=== PATIENT | female | born 1945 | race Caucasian/White ===

== ENCOUNTER → 2017-10-16 | Outpatient (CLI) | payer MEDICARE, BC ==
[~2017-10-16] MED LIST: DULE200A INH; DULO60 PO; LEVO150T7 PO; WAL-10TA2 PO
--- NOTE | 2017-10-16 13:15 | RADRPT ---
EXAM DATE: 10/16/2017 1:06 PM EDT AGE/SEX: 71 years / Female INDICATIONS: Intermittent wheezing. CLINICAL DATA: This is the patient's initial encounter. Patient reports that signs and symptoms have been present for 1 month and indicates a pain score of 0/10. MEDICAL/SURGICAL HISTORY: Asthma. None. COMPARISON: No prior exams available for comparison. FINDINGS: Underinflated AP view of the chest demonstrates a normal size cardiac silhouette. There is mild atele ctasis at the lung bases. No pleural effusion, airspace consolidation, or pneumothorax is identified. Bones and soft tissues demonstrate no acute finding. There are degenerative changes of the thoracic spine. CONCLUSION: Underinflated examination without an acute finding identified given the technique. Electronically signed by: Cristian Benitez MD 10/16/2017 1:14 PM EDT
== END ==
LOC: HRSP 11:57
PROVIDERS: ATTEND Internal Medicine Pulmonary Disease
DX: R06.00 Dyspnea, unspecified (principal); G47.30 Sleep apnea, unspecified; J45.909 Unspecified asthma, uncomplicated
CPT/HCPCS: 71046; 94060; 94726; 94729